=== PATIENT | female | born 1965 | race Caucasian/White ===

== ENCOUNTER 2019-02-16 08:13 | Inpatient (IN) | payer BC, SELFPAY ==
[2019-02-07 11:42] VITALS: BMI 32.1
[2019-02-16] VITALS (22 sets, daily range): BP systolic 92–141; BP diastolic 50–85; PULSE 86–120; RESP 10–18; TEMP 36.1–36.4; O2SAT 94–97; BMI 31.7
--- NOTE | 2019-02-16 | DI.RAD.S_ITS ---
PROCEDURE: XR LUMBAR SPINE 2-3V INDICATIONS: L5-S1 LAMI W/ INSTRUMENTATION FINDINGS: 3 limited intraoperative fluoroscopically stored images of the lower lumbar spine were obtained for intraoperative hardware localization purposes. These images are not meant for diagnostic purposes. Intraoperative findings related to a lower lumbar fusion procedure are present. IMPRESSION: Intraoperative images obtained during the patient's lower lumbar fusion procedure. Dictated by: Carlos Rivero M.D. on 02/16/2019 at 12:21 Approved by: Carlos Rivero M.D. on 02/16/2019 at 12:22
[2019-02-16] MEDS: LACTATED RINGERS 1,000 ML 42 ML IV ×2 (08:45→11:19)
--- NOTE | 2019-02-16 09:28 | PM.PREOP ---
Pre-operative Note Interval Note History & Physical reviewed/Exam performed by Physician: Yes Changes to H&P: No
--- NOTE | 2019-02-16 09:34 | P.OP_ITS ---
Operative Date/Time/Diagnoses Date of procedure: 02/16/19 Time of procedure: 13:16 Pre-op diagnosis: Lumbar disc herniation with radiculopathy Lumbar stenosis Post-op diagnosis: same Procedure & Clinicians Procedure: L5-S1 TLIF (posterior/posterior interbody fusion) with cage L5-S1 screws Iliac crest bone graft aspirate L5-S1 laminectomy Use of microscope Placement of epidural catheter Same procedure as scheduled: Yes Indications: [age] year old female with intractable pain from radiculopathy from stenosis. They had failed conservative management and requested operative intervention. Risks and benefits of surgery were discussed and appropriate consents were obtained. Surgeon: Clement Byrd [employer] Engineer: Carol Mackey Anesthesia Type: General Operative Notes Findings: None Closure Type: primary Specimen(s): none sent Prosthetic devices, grafts, tissues, transplants, or devices: NuVasive MAS Reline screws Globus Rise cage Applied: catheter Estimated Blood Loss (mL): 20 Procedure in detail: The patient was brought to the operating room and intubated on the table. A time-out was performed. They were then rolled over to the well- padded Mejia table in the prone position. Preoperative antibiotics were given. The back was prepped and draped in the standard sterile fashion. Using fluoroscopy, a 4 cm longitudinal incision was made to the well-marked right of the midline. We used Bovie to come down to and split the lumbodorsal fascia. Using fluoroscopy and monitoring, we then percutaneously placed Jamshidi needles down the pedicles of L5 and S1 on the right side. This was her collapsed disc above the level of her transitional S1-S2 level. She had very hard bone and we bent the needle going in at 1 level. These were changed out to guidewires and then we tapped and then placed the NuVasive MAS Reline screw shanks. We then opened up the retractors and used Bovie to clear up the posterolateral gutter as well as medially along the lamina to the spinous processes. A bur was used to decorticate the transverse processes. We brought in the microscope. Using a combination of bur and Kerrison rongeurs, a laminectomy was performed from the right side. We cleared over past the midline and carefully depressed the dura until we were able to decompress the opposite side. We cleared out the neural foramen, this required a complete facetectomy. She had massive osteophytes coming off the facet and pressing down onto the disc, crushing the root, much tighter than was on her MRI. This completed the laminectomy at L5-S1. This was separate and distinct from a TLIF approach as this was an extensive decompression requiring almost 45 minutes just to remove the osteophytes and free up the root. We then began the TLIF prep. We carefully cleaned up the remainder of the fo ramen until we could easily retract the exiting root as well as clearing medially below the dura and expose the disc space. The disc was prepped with bipolar and then an annulotomy was performed. We performed a diskectomy using a combination of paddles, nori, pituitaries, and curettes. We distracted the disc using a paddle and locked the retractor in an open position. We then filled the disc space with Osteocel bone graft. We then placed the globus Rise cage under fluoroscopy and then filled this in with more bone graft. The distraction on the retractor was released to compress down. This completed the posterior interbody fusion portion of the TLIF at L5-S1. We then placed the screw heads, bart, and locked down the set screws. The wound was copiously irrigated. A small stab incision was made over the PSIS. We used a Jamshidi needle to aspirate several mL of bone marrow from the pelvis. This was mixed with the remaining Osteocel and combined with all of the locally harvested bone graft and placed in the posterolateral gutter for the posterior fusion of the TLIF at L5- S1. An epidural catheter was then placed in the spinal canal by carefully depressing the dura and advancing it 6 cm cephalad under the remaining lamina without resistance. The muscle fascia was closed. The catheter was then injected with a solution containing 4 mL of 0.5% Marcaine, 1 mg Stadol, 4 mg Duramorph, and 100 mcg of fentanyl. This was injected without resistance and the catheter was pulled. We then went to the opposite side. Again using fluoroscopy, a 3 cm incision was made and Bovie was used to come down to split the fascia. Using neural monitoring and fluoroscopy, Jamshidi needles were advanced down the pedicles of L5 and S1 on the left side. These were switched over guidewires, tapped, and screws placed. We then placed a bart and locked the set screws on this side. The wound was irrigated. The fascia was closed. Vancomycin powder was placed in the wounds. The superficial and skin were closed. A sterile dressing was placed. The patient was then rolled over extubated and brought to recovery room without complications. Complications: none Post-operative Condition: stable Disposition: PACU Plan for aftercare: Inpatient. Up with therapy.
[2019-02-16] MEDS: CEFAZOLIN 2 GM/100 ML FROZ.PIGGY IV ×2 (10:23→18:03)
--- NOTE | 2019-02-16 11:03 | SUR.OPER ---
Prone on spine table, head in foam head support, padded chest and pelvic supports, gel pad at knees, lower legs supported by pillows; nipples, genitalia and toes free of pressure, arms secured on foam padded arm boards at <90 degrees abduction. Tape over blanket at thigh secured to table.
[2019-02-16] MEDS: VANCOMYCIN 1,000 MG VIAL 1000 MG TOP (11:17)
[2019-02-16] MEDS: THROMBIN (RECOMBINANT) 5,000 UNIT VIAL 5000 UNIT TOP (11:19)
[2019-02-16] MEDS: SODIUM CHLORIDE 0.9% 1,000 ML, GENTAMICIN 80 MG IRR (11:20)
[2019-02-16] MEDS: BUPIVACAINE 0.5% (PF) 4 ML, MORPHINE-PF 4 MG, BUTORPHANOL 1 MG, fentaNYL 100 MCG INJ (11:24)
--- NOTE | 2019-02-16 13:59 | SUR.PHASEI ---
Report given to Shaquille Adler RN
[2019-02-16] MEDS: fentaNYL 100 MCG/2 ML INJ IV ×2 (14:01→14:39)
[2019-02-16] MEDS: hydrOXYzine 50 MG/ML INJ 25 MG IM (14:06)
[2019-02-16] MEDS: LORazepam 2 MG/ML INJ 0.5 MG IV (14:56)
--- NOTE | 2019-02-16 15:07 | SUR.PHASEI ---
pt is easily arousable but wants pain medication even when she dozes off. Have talked to pt about her pain and deep breathing and reposistioning. Pt states she is tired. Her dressing is dry and intact. Dr Manzanares aware of pt's pain. Pt's vital signs are stable at present. she is slightly tachycardic but she came into the hospital at 89.
[2019-02-16] MEDS: LACTATED RINGERS 1,000 ML 125 ML IV (16:04)
--- NOTE | 2019-02-16 18:19 | PC.NURSE ---
Addendum entered by yKra Guerrero R.N. 02/16/19 18:23: HR between 100 - 107 after initiating fluids, patient taking PO. Normotensive. Original Note: [facility] admit note: Received patient at 1545, sleepy but arousable on O2 at 2L via NC, O2 sat 98%. HR on arrival, 115. No c/O pain or discomfort. CMS to BLE intact. Dressing 4 x 4 gauze to mid lower back, secured with Tegaderm, CDI. Oriented to room, environment, and plan of care. Jose M () at bedside providing supportive care. Call light within reach.
[2019-02-16] MEDS: ATORVASTATIN 10 MG TABLET PO (20:12)
[2019-02-16] MEDS: GABAPENTIN 300 MG CAPSULE PO (20:12)
[2019-02-16] MEDS: DOCUSATE 100 MG CAPSULE PO (20:12)
[2019-02-16] MEDS: SENNOSIDES 8.6 MG TABLET 17.2 MG PO (20:12)
[2019-02-16] MEDS: OXYCODONE IR 5 MG TABLET 10 MG PO (21:32)
[2019-02-17] VITALS (7 sets, daily range): BP systolic 99–120; BP diastolic 52–72; PULSE 90–108; RESP 16–24; TEMP 36.3–37.6; O2SAT 94–98
[2019-02-17] MEDS: OXYCODONE IR 5 MG TABLET PO (00:27)
[2019-02-17] MEDS: diphenhydrAMINE 25 MG TABLET PO (00:28)
[2019-02-17] MEDS: LACTATED RINGERS 1,000 ML 125 ML IV (00:31)
[2019-02-17] MEDS: CEFAZOLIN 2 GM/100 ML FROZ.PIGGY IV (01:25)
[2019-02-17] MEDS: hydrOXYzine pamoate 25 MG CAPSULE PO ×5 (01:54→23:32)
[2019-02-17] MEDS: OXYCODONE IR 5 MG TABLET 10 MG PO ×7 (03:33→23:32)
[2019-02-17 05:34] LABS: Hematocrit 38.5 % (36-46); Hemoglobin 12.8 g/dL (12.0-16.0)
[2019-02-17] MEDS: PANTOPRAZOLE 20 MG TABLET PO (06:08)
--- NOTE | 2019-02-17 07:53 | PM.PNPO.1 ---
Subjective Subjective Date Patient Seen: 02/17/19 Time Patient Seen: 07:53 Interval history: Pain is about a 7. Pain only goes in the legs when she is laying too long on her side and then only along the iliotibial band to the knee. Does not feel like her sciatic pain. Exam Vital Signs (past 8 hours): - 02/17/19 00:05 02/17/19 03:26 02/17/19 07:00 Temperature 97.4 F L 99.1 F 99.6 F Pulse Rate 108 H 102 H 98 H Respiratory Rate 16 16 16 Blood Pressure 101/52 L 120/61 99/52 L Pulse Oximetry 96 94 97 Oxygen Delivery Method Room Air Oxygen Flow Rate 0 Const Orientation: alert and oriented x3 Back/Spine/Pelvis Other: Mild quarter-size drainage on dressing. 5/5 motor both lower extremities. Objective Labs Result Diagrams: 02/17/19 05:15 Labs: Laboratory Results - last 24 hr 02/17/19 05:15 Hgb 12.8 Hct 38.5 Assessment & Plan Post-op Postoperative Procedures: Procedures Operation Date: 02/16/19 10:15 Actual Procedures Side Surgeon p L5S1 laminectomy & instrumented fusion w/ bone graft Clement Byrd MD She is doing well. Mobilize today with physical therapy. Anticipate discharge home either tomorrow or possibly Wednesday.
[2019-02-17] MEDS: DOCUSATE 100 MG CAPSULE PO ×2 (08:43→22:55)
[2019-02-17] MEDS: buPROPion XL 150 MG TAB 300 MG PO (08:44)
[2019-02-17] MEDS: ACETAMINOPHEN 325 MG TABLET 975 MG PO ×2 (08:44→23:32)
[2019-02-17] MEDS: MELOXICAM 7.5 MG TABLET 15 MG PO (08:44)
[2019-02-17] MEDS: DULOXETINE 30 MG CAPSULE 90 MG PO (08:44)
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
--- NOTE | 2019-02-17 15:46 | PC.NURSE ---
Day Shift- Spoke with Dr. Byrd at 0750, dressing has small amount of drainage noted. At 0840, pt had 75% of drainage shadowing. At 0940 , pt ambulating OOB with PT, lower back dressing saturated with leaking onto bedding. Spoke with JOSEPH Callahan at 0940 regarding need for dressing change, order rec'd. Lower back dressing removed, 2 parallel incisions well approximated with sutures intact. right incision no active leaking noted, left incision had active leaking during NS gauze cleansing. 4X4 gauze applied and coversite applied. 0953, JOSEPH Callahan updated with dressing change. Spoke with JOSEPH Muller around 1100, if dressing has drainage again, change to pressure dressing and JOSEPH Muller will check in on pt this afternoon after surgery. At 1455, dressing nearly saturated,dressing removed, area cleansed with NS, 2 incisions well approximated with sutures intact, no S/S of infection. 4X4 gauze and medipore pressure dressing applied, pt tolerated well. Evening RN Rosendo aware to notify JOSEPH Muller to update. Pt also had a compromised PIV to right hand, removed, new IV placed by another RN to right wrist/FA, pt stated pain with movement OOB and requested to have removed with the potential of another IV placement. PIV removed. ZENA Robbins also aware if no further IV interventions needed, pt request to leave IV out and to clarify with PA. Pt has good OOB movement and plans to discharge home tomorrow. Urinary catheter removed at 1110 without difficulty, pt voided post removal for 600mls without issue.
--- NOTE | 2019-02-17 16:07 | PT.IPTN ---
Current Diagnoses Intervertebral disc disorders with radiculopathy, lumbar region (02/16/19) Other biomechanical lesions of lumbar region (02/16/19) Surgery Performed Operation Date: 02/16/19 10:15 Actual Procedures p L5S1 laminectomy & instrumented fusion w/ bone graft - Clement Byrd MD Physical Therapy Treatment Note M2 PT-IP Current Condition Start: 02/17/19 13:00 Freq: NEEDED Status: Active Protocol: Document 02/17/19 09:15 AB (Rec: 02/17/19 13:14 AB [id number]) Physical Therapy Current Condition Current Condition Evaluation Date 02/17/19 Treatment Diagnosis s/p L5-S1 TLIF; difficulty in walking Onset Date 02/16/19 Precautions Lumbar Precautions Log Roll,No Twisting,Limit Bending,Lifting Restriction of 10 lbs,Gait Belt above Incisional Area M3 PT-IP Subjective Start: 02/17/19 13:00 Freq: NEEDED Status: Active Protocol: Document 02/17/19 15:34 LJ (Rec: 02/17/19 16:07 LJ [id number]) Subjective Physical Therapy Visit Type Type Treatment Note Visit Start Time 15:34 Visit Stop Time 15:57 Total Visit Minutes 27 Number of REPTILE FARMER Visits 1 Physical Therapy Visit Comments Patient Comments agreeable to do PT Therapy Pain Assessment Pain When Pain Assessed During Mobility Pain Present Pain Present Pain Reported M4 PT-IP Mobility and Gait Start: 02/17/19 13:00 Freq: NEEDED Status: Active Protocol: Document 02/17/19 15:34 LJ (Rec: 02/17/19 16:07 LJ [id number]) PT-Bed Mobility Assessment Rolling Type of Rolling Log Rolling Level of Assist Standby Assistance Supine to Sit Supine to Sit Standby Assistance,1 Person Assistance PT-Transfer Assessment Sit to and From Stand Sit to and from Stand Contact Guard Assistance,1 Person Assistance Equipment Transfer Assistive Device Gait Belt,Front Wheeled Walker Orthotic/Prosthetic Devices or Brace: No Transfers Transfer Destination Bed Transfer Ability Level of Assist Contact Guard Assistance, Minimal Assistance,1 Person Assistance,Use of Upper Extremities Comments Mobility Comments Pt completed log roll, supine< >sit, and sit<>stand SBA-CGA. Pt able to stand on first attempt and stabilize holding onto FWW. Gait Assessment Gait Gait Assistance Required: Contact Guard Assist,Minimum Assistance Distance (Feet) 30 Able to Maintain Weight Bearing Status Yes During Gait Assistive Devices Assistive Device Gait Belt,Front Wheeled Walker Orthotic/Prosthetic Devices or Brace: No Gait Deviations General Gait Pattern Decreased Stride Length, Decreased Feet Clearance Factors Limiting Gait Function Factors Limiting Gait Function Decreased Activity Tolerance, Decreased Strength,Limited Range of Motion,Pain,Poor Balance Comments Gait Comments Pt using FWW for support during ambulation. Slow and steady gait with decreased foot clearance and stride CGA. PT-Balance Assessment Sitting Balance and Reactions Static Sitting Balance Ability Good Dynamic Sitting Balance Ability Good M5 PT-IP Objective Assessments Start: 02/17/19 13:00 Freq: NEEDED Status: Active Protocol: Document 02/17/19 09:15 AB (Rec: 02/17/19 13:14 AB [id number]) Orientation Orientation/Cognition Level of Alertness Alert Orientation Name,Place,Situation Language Function Ability No Deficits Noted Safety Awareness Decreased Safety Awareness Memory Description No Deficits Noted Gross Range of Motion Lower Extremity ROM Assessment Within Functional Limits Strength Lower Extremity Strength Assessment Right Impaired Hip 4-/5 Knee 3+/5 Coordination Assessment Gross Coordination Gross Coordination WNL Sensation Assessment Sensation Gross Sensation WNL Muscle Tone Muscle Tone WNL Yes M6 PT-IP Treatment Start: 02/17/19 13:00 Freq: NEEDED Status: Active Protocol: Document 02/17/19 15:34 LJ (Rec: 02/17/19 16:07 LJ [id number]) Physical Therapy Treatment Education Education Provided Precautions,Safety M7 PT-IP Assessment and Plan Start: 02/17/19 13:00 Freq: NEEDED Status: Active Protocol: Document 02/17/19 15:34 LJ (Rec: 02/17/19 16:07 LJ [id number]) PT Summary Assessment and Plan Potential Rehabilitation Potential Good Status of Condition at Evaluation Stable Summary Impairments Pain,ROM,Strength,Balance, Coordination,Bed Mobility, Transfers,Gait,Activity Tolerance Assessment Summary pt requiring SBA-CGA with mobility and gait. Will need to attempt 1 step-like landing and stairs to get into house before DC. Next treatmeent advance gait distance and trial step. Daughter present during treatment. ADvised pillow placements for more comfortable sleep position on side. Goals Bed Mobility Goal Independent Transfer Goal Standby Assistance,Front Wheeled Walker Gait Goal Standby Assistance,Front Wheel Walker Gait Distance 200 Other Goals up/down 14 steps R rail SBA Days to Meet Goals 3 Frequency of Treatment Frequency Of Treatment Twice a Day Treatment Plan Physical Therapy Treatment Plan Bed Mobility Training,Transfer Training,Gait Training, Therapeutic Exercise,Balance Retraining,Post Op Education, Discharge Planning,Hot or Cold Pack,Neuromuscular Re-ed, Coordination Retraining,Manual Therapy Recommendations To Nursing Amount of Assist Needed 1 Person Assist Discharge Recommendations PT Discharge Recommendations Home with Assistance
[2019-02-17] MEDS: TIZANIDINE 4 MG TABLET PO (16:42)
--- NOTE | 2019-02-17 16:49 | PC.NURSE ---
PATIENT HAS NO IV AT THIS TIME,IV WAS REMOVED BY DAY SHIFT RN.ORAL PAIN MEDICATIONS GIVEN,PATIENTS PAIN NOT COVERED, ATTEMPT MULTI.TIMES FOR PIV, PATIENT STATES ORAL PAIN MEDS STARTING TO TAKE EFFECT.REFUSES ADDITIONAL IV ATTEMPTS
[2019-02-17] MEDS: ATORVASTATIN 10 MG TABLET PO (22:55)
[2019-02-17] MEDS: GABAPENTIN 300 MG CAPSULE PO (22:55)
[2019-02-17] MEDS: SENNOSIDES 8.6 MG TABLET 17.2 MG PO (22:56)
[2019-02-18] MEDS: OXYCODONE IR 5 MG TABLET PO (01:34)
[2019-02-18] MEDS: TIZANIDINE 4 MG TABLET PO ×2 (01:34→23:30)
[2019-02-18 04:15] VITALS: BP 107/59; PULSE 85; RESP 20; TEMP 36.1; O2SAT 100
[2019-02-18] MEDS: OXYCODONE IR 5 MG TABLET 10 MG PO ×2 (04:18→07:47)
[2019-02-18] MEDS: hydrOXYzine pamoate 25 MG CAPSULE PO ×3 (04:18→13:57)
--- NOTE | 2019-02-18 06:56 | PC.NURSE ---
Intravenous line attempted twice on NOC shift and both attempts were unsuccessful.
[2019-02-18] MEDS: ACETAMINOPHEN 325 MG TABLET 975 MG PO ×3 (07:46→16:54)
[2019-02-18] MEDS: DULOXETINE 30 MG CAPSULE 90 MG PO (07:46)
[2019-02-18] MEDS: MELOXICAM 7.5 MG TABLET 15 MG PO (07:47)
[2019-02-18] MEDS: DOCUSATE 100 MG CAPSULE PO ×2 (07:47→20:13)
[2019-02-18 08:00] VITALS: BP 108/66; PULSE 84; RESP 18; TEMP 36.3; O2SAT 97
--- NOTE | 2019-02-18 08:58 | PT.IPTN ---
Current Diagnoses Intervertebral disc disorders with radiculopathy, lumbar region (02/16/19) Other biomechanical lesions of lumbar region (02/16/19) Surgery Performed Operation Date: 02/16/19 10:15 Actual Procedures p L5S1 laminectomy & instrumented fusion w/ bone graft - Clement Byrd MD Physical Therapy Treatment Note M2 PT-IP Current Condition Start: 02/17/19 13:00 Freq: NEEDED Status: Active Protocol: Document 02/17/19 09:15 AB (Rec: 02/17/19 13:14 AB [id number]) Physical Therapy Current Condition Current Condition Evaluation Date 02/17/19 Treatment Diagnosis s/p L5-S1 TLIF; difficulty in walking Onset Date 02/16/19 Precautions Lumbar Precautions Log Roll,No Twisting,Limit Bending,Lifting Restriction of 10 lbs,Gait Belt above Incisional Area M3 PT-IP Subjective Start: 02/17/19 13:00 Freq: NEEDED Status: Active Protocol: Document 02/18/19 08:58 CLB (Rec: 02/18/19 11:16 CLB [id number]) Subjective Physical Therapy Visit Type Type Treatment Note Visit Start Time 08:58 Visit Stop Time 09:11 Total Visit Minutes 13 Notes Pts daughter present during tx . Number of ELECTRIC WHEELCHAIR REPAIRER Visits 2 Physical Therapy Visit Comments Patient Comments agreeable to do PT Therapy Pain Assessment Pain When Pain Assessed At Rest Pain Present Pain Present Pain Reported Location Lower Back Intensity 6 Scale Used Numeric (1 - 10) Pain Management Techniques Apply Cold,Re-positioning, Timing of Activity with Medications M4 PT-IP Mobility and Gait Start: 02/17/19 13:00 Freq: NEEDED Status: Active Protocol: Document 02/18/19 08:58 CLB (Rec: 02/18/19 11:16 CLB [id number]) PT-Bed Mobility Assessment Rolling Type of Rolling Log Rolling Level of Assist Standby Assistance Supine to Sit Supine to Sit Standby Assistance,1 Person Assistance Scooting Scooting to Edge of Bed Standby Assistance PT-Transfer Assessment Sit to and From Stand Sit to and from Stand Standby Assistance,1 Person Assistance,Use of Upper Extremities Equipment Transfer Assistive Device Gait Belt,Front Wheeled Walker Orthotic/Prosthetic Devices or Brace: No Transfers Transfer Destination Bed Transfer Ability Level of Assist Standby Assistance,1 Person Assistance,Use of Upper Extremities Comments Mobility Comments Pt is SBA for log roll, sup- sit and sit<>stand. Pt has good safety awareness during transfers. Left pt sitting on EOB with call light and all other needs within reach, CELL ATTENDANT HELPER informed. Daughter present. Gait Assessment Gait Gait Assistance Required: Standby Assistance,Contact Guard Assist Distance (Feet) 100 Able to Maintain Weight Bearing Status Yes During Gait Assistive Devices Assistive Device Gait Belt,Front Wheeled Walker Orthotic/Prosthetic Devices or Brace: No Gait Deviations General Gait Pattern Decreased Stride Length, Decreased Feet Clearance Factors Limiting Gait Function Factors Limiting Gait Function Decreased Activity Tolerance, Decreased Strength,Limited Range of Motion,Pain,Poor Balance Comments Gait Comments Pt increased gait to ~100ft with FWW/SBA/CGA. Pt steady with gait with good safety awareness. M5 PT-IP Objective Assessments Start: 02/17/19 13:00 Freq: NEEDED Status: Active Protocol: Document 02/17/19 09:15 AB (Rec: 02/17/19 13:14 AB [id number]) Orientation Orientation/Cognition Level of Alertness Alert Orientation Name,Place,Situation Language Function Ability No Deficits Noted Safety Awareness Decreased Safety Awareness Memory Description No Deficits Noted Gross Range of Motion Lower Extremity ROM Assessment Within Functional Limits Strength Lower Extremity Strength Assessment Right Impaired Hip 4-/5 Knee 3+/5 Coordination Assessment Gross Coordination Gross Coordination WNL Sensation Assessment Sensation Gross Sensation WNL Muscle Tone Muscle Tone WNL Yes M6 PT-IP Treatment Start: 02/17/19 13:00 Freq: NEEDED Status: Active Protocol: Document 02/17/19 15:34 LJ (Rec: 02/17/19 16:07 LJ [id number]) Physical Therapy Treatment Education Education Provided Precautions,Safety M7 PT-IP Assessment and Plan Start: 02/17/19 13:00 Freq: NEEDED Status: Active Protocol: Document 02/18/19 08:58 CLB (Rec: 02/18/19 11:16 CLB [id number]) PT Summary Assessment and Plan Potential Rehabilitation Potential Good Status of Condition at Evaluation Stable Summary Impairments Pain,ROM,Strength,Balance, Coordination,Bed Mobility, Transfers,Gait,Activity Tolerance Assessment Summary Pt requires SBA for all bed mobility, sit<>stand and SBA/ CGA for gait. Pt able to increase gait to ~100ft but did not feel she could attempt stairs after gait due to pain . Up/down one step with FWW before d/c home. Goals Bed Mobility Goal Independent Transfer Goal Standby Assistance,Front Wheeled Walker Gait Goal Standby Assistance,Front Wheel Walker Other Goals up/down 14 steps R rail SBA Days to Meet Goals 3 Frequency of Treatment Frequency Of Treatment Twice a Day Treatment Plan Physical Therapy Treatment Plan Bed Mobility Training,Transfer Training,Gait Training, Therapeutic Exercise,Balance Retraining,Post Op Education, Discharge Planning,Hot or Cold Pack,Neuromuscular Re-ed, Coordination Retraining,Manual Therapy Other Recommendations and Next Treatment stairs, gait Focus Recommendations To Nursing Amount of Assist Needed 1 Person Assist Discharge Recommendations PT Discharge Recommendations Home with Assistance
--- NOTE | 2019-02-18 09:25 | PM.PN.1 ---
Subjective Subjective Date Patient Seen: 02/18/19 Time Patient Seen: 09:26 Interval history: Patient is POD #2 L4-[address] Byrd. Pain severe overnight, not controlled with Oxycodone PO. Several attempts were made to start an IV which were unsuccessful. Patient states she was unable to sleep for >10 min at a time due to LBP and pain into the legs. No nausea or vomiting, chest pain, shortness of breath. Exam Vital Signs (past 8 hours): - 02/18/19 04:15 02/18/19 08:00 Temperature 96.9 F L 97.3 F L Pulse Rate 85 84 Respiratory Rate 20 18 Blood Pressure 107/59 L 108/66 Pulse Oximetry 100 97 Oxygen Delivery Method Room Air Oxygen Flow Rate 0 Narrative Exam Narrative: 53 year old female sitting in bed. Alert and oriented in moderate discomfort. Dressing on the lumbar spine with moderated shadow drainage. 5/5 in BLE. SILT. Calves soft, compressible. Palpable pedal pulses. Objective Labs Result Diagrams: 02/17/19 05:15 Assessment & Plan Assessment & Plan narrative: Patient will mobilize today with PT. Dilaudid 2mg PO Decadron added for improved pain control. Possible discharge later today if improved pain control otherwise discharge to home tomorrow.
--- NOTE | 2019-02-18 10:00 | OT.IP.TRT ---
Current Diagnoses Intervertebral disc disorders with radiculopathy, lumbar region (02/16/19) Other biomechanical lesions of lumbar region (02/16/19) Surgery Performed Operation Date: 02/16/19 10:15 Actual Procedures p L5S1 laminectomy & instrumented fusion w/ bone graft - Clement Byrd MD Occupational Therapy Treatment Note M2 OT-IP Current Condition Start: 02/17/19 16:45 Freq: Status: Active Protocol: Document 02/17/19 16:46 [facility] (Rec: 02/17/19 17:10 [facility] [id number]) Occupational Therapy Current Condition Current Condition Evaluation Date 02/17/19 Treatment Diagnosis S/p L5-S1 TLIF Diagnosis Onset Date 02/16/19 Post Operative Precautions Lumbar Precautions Log Roll,No Twisting,Limit Bending,Lifting Restriction of 10 lbs,Gait Belt above Incisional Area Weight Bearing Status Weight Bearing Status Weight Bear as Tolerated M3 OT- IP Subjective and Pain Start: 02/17/19 16:45 Freq: Status: Active Protocol: Document 02/18/19 12:14 [facility] (Rec: 02/18/19 12:29 [facility] [id number]) OT- Subjective Occupational Therapy Visit Type Type Treatment Note Visit Start Time 10:00 Visit Stop Time 10:26 Total Visit Minutes 26 Occupational Therapy Visit Comments Patient Comments Pt states having pain and tired from not sleeping well. Patient/Caregiver Goals To go home when pain more manageable. OT Pain Assessment Pain When Pain Assessed At Rest Pain Present Pain Present Pain Reported Location Left Thigh Intensity 9 M4 OT- IP ADL's Start: 02/17/19 16:45 Freq: Status: Active Protocol: Document 02/18/19 12:14 [facility] (Rec: 02/18/19 12:29 [facility] [id number]) OT ADL-Grooming General Evaluation Grooming Ability Independent OT ADL-Oral Care General Eval Oral Care Ability Independent Comments Oral Care Comments Pt able to incorporate back precautions safely during grooming needs. OT ADL-Toileting General Evaluation Toileting Ability Independent,Standby Assistance Comments OT Toileting Comments Pt independent for toileting needing and able to stand for hygiene needs. At this time BSC mainly needed if having a far distance to use if pt going to sleep on the main level in her recliner. OT ADL-Bathing Comments OT Bathing Comments Pt not wanting to shower at this time. M5 OT- IP IADL's Start: 02/17/19 16:45 Freq: Status: Active Protocol: Document 02/17/19 16:46 [facility] (Rec: 02/17/19 17:10 [facility] [id number]) OT-Instrumental Activities of Daily Living Home Safety Awareness Awareness of Need for Assistance at Home Good Awareness Ability to Problem Solve Emergency Able to Problem Solve Situations Medication Management Medication Management No Deficits Identified Money Management Money Management No Deficits Identified Meal Preparation Meal Preparation Comments Family to assist. Sprayer Automatic Spray Machine Sprayer Automatic Spray Machine Comments Family to assist. M6 OT- IP Functional Cognition Start: 02/17/19 16:45 Freq: Status: Active Protocol: Document 02/18/19 12:14 [facility] (Rec: 02/18/19 12:29 [facility] [id number]) Cognitive Factors Limiting Selfcare Function Cognitive Ability Level of Alertness Alert Patient Orientation Name,Age,Birthday,Month,Date, Year,Day of Week,Place, Situation Attention Span Ability Capable of Focused Attention, Capable of Sustained Attention Ability to Follow Commands Able to Follow Multi-Step Commands Memory Description No Deficits Noted Safety Awareness Underestimates Need for Assistance Problem Solving Ability No deficits Noted Cognitive Comments Cognitive Assessment Comments Pt insisting that she is able to flush the toilet, therefore turned around with the FWW and lifted her leg up to use her foot to flush the toilet. Educated to pt best to use her hand to flush for safety instead . M7 OT- IP Mobility and Balance Start: 02/17/19 16:45 Freq: Status: Active Protocol: Document 02/18/19 12:14 [facility] (Rec: 02/18/19 12:29 [facility] [id number]) OT- Bed Mobility Assessment Rolling Type of Rolling Roll to Right Level of Assistance Standby Assistance Supine to Sit Supine to Sit Assist Standby Assistance,1 Person Assistance Sit to Supine Sit to Supine Assist Standby Assistance,1 Person Assistance Scooting Scooting to Edge of Bed Standby Assistance,1 Person Assistance OT-Transfer Assessment Sit to and From Stand Sit to and from Stand Standby Assistance Transfers Transfer Ability Standby Assistance Technique Transfer Destination Bed,Toilet Transfer Technique Stand Step Pivot Devices Transfer Assistive Devices Gait Belt,Front Wheeled Walker OT- Balance Assessment Sitting Balance and Reactions Static Sitting Balance Ability Normal Dynamic Sitting Balance Ability Normal Standing Balance and Reactions Static Standing Balance Ability Normal Dynamic Standing Balance Ability Fair M8 OT- IP Objective Assessments Start: 02/17/19 16:45 Freq: Status: Active Protocol: Document 02/17/19 16:46 [facility] (Rec: 02/17/19 17:10 [facility] [id number]) OT Gross Range of Motion Upper Extremity Range of Motion Assessment Within Functional Limits OT Strength Upper Extremity Strength Assessment Within Functional Limits M9 OT- IP Assessment and Plan Start: 02/17/19 16:45 Freq: Status: Active Protocol: Document 02/18/19 12:14 [facility] (Rec: 02/18/19 12:29 [facility] [id number]) OT Summary Assessment and Plan Potential Rehabilitation Potential Excellent Analytic Complexity at Evaluation Low Summary OT Impairments Pain,Functional Mobility, Bathing,Shower Transfers Progress Towards Goals Progressing Toward Goals Assessment Summary Pt doing well for OT needs, mainly cues to safety awareness as pt trying to flush the toilet with her foot versus use of hand for better auto body straightener and safety. Pt has good understanding for all OT needs and will have family to assist her at home. Goals Grooming Goal Independent Dressing Goal Standby Assistance Toileting Goal Independent Bathing Goal Standby Assistance Toilet Transfer Goal Independent Shower Transfer Goal Standby Assistance Patient/Caregiver Education Goal Caregiver Independent Assisting Patient Days to Meet Goals 1 Frequency of Treatment Frequency Of Treatment Once a Day Treatment Plan OT Treatment Plan ADL Training,Functional Mobility,Patient/Family Education,Discharge Planning Discharge Recommendations OT Discharge Recommendations Home with Assistance Home Equipment Needs BSCWINSTON dressing equipment issued
[2019-02-18] MEDS: HYDROMORPHONE 2 MG TABLET PO ×5 (10:52→23:30)
[2019-02-18] MEDS: buPROPion XL 150 MG TAB 300 MG PO (10:52)
[2019-02-18] MEDS: dexAMETHasone 4 MG TABLET 10 MG PO (10:54)
[2019-02-18 12:00] VITALS: BP 123/71; PULSE 90; RESP 18; TEMP 36.6; O2SAT 99
--- NOTE | 2019-02-18 12:26 | CM.IDA ---
Initial DCP Assessment Note: Pt is a 53 yo female, resident of [place]. Pt is now POD#2 from spinal surgery w/Dr Byrd. PCP: Yaneth Wolff Payer: Celena/ KELLY Reviewed chart, spoke w/Ortho PA this morning and she indicated pt can DC home today if pain is adequately controlled and therapy team has cleared her for this plan. Therapy team recommending home w/assistance today, pt has planned to DC home w/spouse and family to assist. Stair training (one stair per notes) this afternoon. Attempted to meet w/pt and she said she was in pain, confirms plan for return home, pt had just finished w/OT. This COMPENSATION AND BENEFITS ADMINISTRATOR has not identified any barriers this morning to pt's DC home, likely later today. Will remain available in case this changes today/tomorrow. ANUP Cantrell
[2019-02-18] MEDS: dexAMETHasone 4 MG TABLET PO ×2 (13:57→21:33)
--- NOTE | 2019-02-18 14:17 | PC.NURSE ---
Patient assisted to shower. INCISION RINSE WITH NORMAL SALINE AND THEN Dressing on back changed to coversite, CDI AT THIS TIME. Patient still rating her pain up to a 6 or 7 at this time, she feels dilaudid may be starting to help more than the oxycodone. Pain has decreased in her left thigh but remains significant in her back. Patient not feeling ready for discharge today. Plan for P.T. to come back this afternoon to assess stairs. Patient resting in chair at this time with call light within reach.
[2019-02-18] MEDS: MAGNESIUM HYDROXIDE 30 ML UDC PO (15:02)
--- NOTE | 2019-02-18 15:02 | PT.IPTN ---
Current Diagnoses Intervertebral disc disorders with radiculopathy, lumbar region (02/16/19) Other biomechanical lesions of lumbar region (02/16/19) Surgery Performed Operation Date: 02/16/19 10:15 Actual Procedures p L5S1 laminectomy & instrumented fusion w/ bone graft - Clement Byrd MD Physical Therapy Treatment Note M2 PT-IP Current Condition Start: 02/17/19 13:00 Freq: NEEDED Status: Active Protocol: Document 02/17/19 09:15 AB (Rec: 02/17/19 13:14 AB [id number]) Physical Therapy Current Condition Current Condition Evaluation Date 02/17/19 Treatment Diagnosis s/p L5-S1 TLIF; difficulty in walking Onset Date 02/16/19 Precautions Lumbar Precautions Log Roll,No Twisting,Limit Bending,Lifting Restriction of 10 lbs,Gait Belt above Incisional Area M3 PT-IP Subjective Start: 02/17/19 13:00 Freq: NEEDED Status: Active Protocol: Document 02/18/19 14:21 LJ (Rec: 02/18/19 15:02 LJ [id number]) Subjective Physical Therapy Visit Type Type Treatment Note Visit Start Time 14:21 Visit Stop Time 14:45 Total Visit Minutes 24 Physical Therapy Visit Comments Patient Comments agreeable to do PT M4 PT-IP Mobility and Gait Start: 02/17/19 13:00 Freq: NEEDED Status: Active Protocol: Document 02/18/19 14:21 LJ (Rec: 02/18/19 15:02 LJ [id number]) PT-Transfer Assessment Sit to and From Stand Sit to and from Stand Standby Assistance,1 Person Assistance,Use of Upper Extremities Equipment Transfer Assistive Device Gait Belt,Front Wheeled Walker Orthotic/Prosthetic Devices or Brace: No Transfers Transfer Destination Bed Transfer Ability Level of Assist Standby Assistance,1 Person Assistance,Use of Upper Extremities Comments Mobility Comments Pt is SBA for bed mobility and transfers. Gait Assessment Gait Gait Assistance Required: Standby Assistance,Contact Guard Assist Distance (Feet) 100 Able to Maintain Weight Bearing Status Yes During Gait Assistive Devices Assistive Device Gait Belt,Front Wheeled Walker Orthotic/Prosthetic Devices or Brace: No Gait Deviations General Gait Pattern Decreased Stride Length, Decreased Feet Clearance, Narrow Based Gait Factors Limiting Gait Function Factors Limiting Gait Function Decreased Activity Tolerance, Decreased Strength,Limited Range of Motion,Pain,Poor Balance Comments Gait Comments Pt ambulated to stairs and back to room ~120 with CGA-SBA . Cues for widening gait to increase safety while walking. Stair Climbing Assessment Evaluation Level of Assist On Stairs Standby Assistance Devices Stair Climbing Assistive Devices Front Wheel Walker Technique/Endurance Stair Climbing Direction Ascend and Descend Stair Climbing Technique Step to Step Number of Steps Climbed 1 Stair Climbing Set # Repetitions (reps) 1 M5 PT-IP Objective Assessments Start: 02/17/19 13:00 Freq: NEEDED Status: Active Protocol: Document 02/17/19 09:15 AB (Rec: 02/17/19 13:14 AB [id number]) Orientation Orientation/Cognition Level of Alertness Alert Orientation Name,Place,Situation Language Function Ability No Deficits Noted Safety Awareness Decreased Safety Awareness Memory Description No Deficits Noted Gross Range of Motion Lower Extremity ROM Assessment Within Functional Limits Strength Lower Extremity Strength Assessment Right Impaired Hip 4-/5 Knee 3+/5 Coordination Assessment Gross Coordination Gross Coordination WNL Sensation Assessment Sensation Gross Sensation WNL Muscle Tone Muscle Tone WNL Yes M6 PT-IP Treatment Start: 02/17/19 13:00 Freq: NEEDED Status: Active Protocol: Document 02/17/19 15:34 LJ (Rec: 02/17/19 16:07 LJ [id number]) Physical Therapy Treatment Education Education Provided Precautions,Safety M7 PT-IP Assessment and Plan Start: 02/17/19 13:00 Freq: NEEDED Status: Active Protocol: Document 02/18/19 14:21 LJ (Rec: 02/18/19 15:02 LJ [id number]) PT Summary Assessment and Plan Potential Rehabilitation Potential Good Status of Condition at Evaluation Stable Summary Impairments Pain,ROM,Strength,Balance, Coordination,Bed Mobility, Transfers,Gait,Activity Tolerance Assessment Summary Pt requires SBA for bed mobility and transfers. CGA for for ambulation and stepping up and down with FWW on lg platform step. Next treatment advance gait distance. Goals Bed Mobility Goal Independent Transfer Goal Standby Assistance,Front Wheeled Walker Gait Goal Standby Assistance,Front Wheel Walker Other Goals up/down 14 steps R rail SBA Frequency of Treatment Frequency Of Treatment Twice a Day Treatment Plan Physical Therapy Treatment Plan Bed Mobility Training,Transfer Training,Gait Training, Therapeutic Exercise,Balance Retraining,Post Op Education, Discharge Planning,Hot or Cold Pack,Neuromuscular Re-ed, Coordination Retraining,Manual Therapy Other Recommendations and Next Treatment gait and possibly stairs but Focus pt is able to sleep on first floor Recommendations To Nursing Amount of Assist Needed 1 Person Assist Discharge Recommendations PT Discharge Recommendations Home with Assistance
[2019-02-18 16:48] VITALS: BP 128/74; PULSE 91; RESP 19; TEMP 36.3; O2SAT 95
[2019-02-18] MEDS: GABAPENTIN 300 MG CAPSULE PO (20:13)
[2019-02-18] MEDS: ATORVASTATIN 10 MG TABLET PO (20:13)
[2019-02-18] MEDS: SENNOSIDES 8.6 MG TABLET 17.2 MG PO (20:14)
[2019-02-18 21:41] VITALS: BP 103/55; PULSE 104; RESP 20; TEMP 35.6; O2SAT 95
[2019-02-18 23:00] VITALS: BP 127/72; PULSE 96; RESP 16; TEMP 36.2; O2SAT 98
[2019-02-19] MEDS: ACETAMINOPHEN 325 MG TABLET 975 MG PO ×2 (02:25→08:40)
[2019-02-19] MEDS: HYDROMORPHONE 2 MG TABLET PO ×3 (02:26→09:13)
--- NOTE | 2019-02-19 03:51 | PC.NURSE ---
Patient stated she wanted to be awakened during the night whenever it may be possible for pain meds. Able to rest between administrations.
[2019-02-19 05:24] VITALS: BP 127/77; PULSE 90; RESP 16; TEMP 36.9; O2SAT 97
[2019-02-19] MEDS: dexAMETHasone 4 MG TABLET PO (06:06)
[2019-02-19] MEDS: hydrOXYzine pamoate 25 MG CAPSULE PO (06:06)
[2019-02-19] MEDS: PANTOPRAZOLE 20 MG TABLET PO (06:23)
--- NOTE | 2019-02-19 07:59 | PC.NURSE ---
Patient is sleeping soundly in bed at this time, recently took pain medications at 6am per nightshift and then allowed to rest. Call light within reach, will follow.
[2019-02-19 08:00] VITALS: BP 126/72; PULSE 91; RESP 16; TEMP 36.5; O2SAT 97
[2019-02-19] MEDS: buPROPion XL 150 MG TAB 300 MG PO (08:40)
[2019-02-19] MEDS: DOCUSATE 100 MG CAPSULE PO (08:41)
[2019-02-19] MEDS: DULOXETINE 30 MG CAPSULE 90 MG PO (08:41)
[2019-02-19] MEDS: MELOXICAM 7.5 MG TABLET 15 MG PO (08:41)
--- NOTE | 2019-02-19 09:12 | PT.IPTN ---
Current Diagnoses Intervertebral disc disorders with radiculopathy, lumbar region (02/16/19) Other biomechanical lesions of lumbar region (02/16/19) Surgery Performed Operation Date: 02/16/19 10:15 Actual Procedures p L5S1 laminectomy & instrumented fusion w/ bone graft - Clement Byrd MD Physical Therapy Treatment Note M2 PT-IP Current Condition Start: 02/17/19 13:00 Freq: NEEDED Status: Discharge Protocol: Document 02/17/19 09:15 AB (Rec: 02/17/19 13:14 AB [id number]) Physical Therapy Current Condition Current Condition Evaluation Date 02/17/19 Treatment Diagnosis s/p L5-S1 TLIF; difficulty in walking Onset Date 02/16/19 Precautions Lumbar Precautions Log Roll,No Twisting,Limit Bending,Lifting Restriction of 10 lbs,Gait Belt above Incisional Area M3 PT-IP Subjective Start: 02/17/19 13:00 Freq: NEEDED Status: Discharge Protocol: Document 02/19/19 09:12 [facility] (Rec: 02/19/19 12:10 [facility] [id number]) Subjective Physical Therapy Visit Type Type Treatment Note Visit Start Time 09:12 Visit Stop Time 09:31 Total Visit Minutes 19 Number of CREDIT AND COLLECTIONS ANALYST Visits 4 Physical Therapy Visit Comments Patient Comments agreeable to do PT Therapy Pain Assessment Pain When Pain Assessed During Mobility Pain Present Pain Present Pain Reported Location Lower Back Intensity 5 Scale Used Numeric (1 - 10) Pain Management Techniques Apply Cold,Re-positioning, Timing of Activity with Medications M4 PT-IP Mobility and Gait Start: 02/17/19 13:00 Freq: NEEDED Status: Discharge Protocol: Document 02/19/19 09:12 [facility] (Rec: 02/19/19 12:10 [facility] [id number]) PT-Bed Mobility Assessment Rolling Type of Rolling Log Rolling Level of Assist Standby Assistance Supine to Sit Supine to Sit Standby Assistance,1 Person Assistance Scooting Scooting to Edge of Bed Standby Assistance PT-Transfer Assessment Sit to and From Stand Sit to and from Stand Standby Assistance,1 Person Assistance,Use of Upper Extremities Equipment Transfer Assistive Device Gait Belt,Front Wheeled Walker Orthotic/Prosthetic Devices or Brace: No Transfers Transfer Destination Bed,Chair Transfer Ability Level of Assist Standby Assistance,1 Person Assistance,Use of Upper Extremities Comments Mobility Comments Pt is SBA for bed mobility and transfers. Gait Assessment Gait Gait Assistance Required: Standby Assistance Distance (Feet) 225 Able to Maintain Weight Bearing Status Yes During Gait Assistive Devices Assistive Device Gait Belt,Front Wheeled Walker Orthotic/Prosthetic Devices or Brace: No Factors Limiting Gait Function Factors Limiting Gait Function Decreased Activity Tolerance, Decreased Strength,Pain Comments Gait Comments Pt increased ambulation to ~ 225ft with steady step through gait pattern. Pt uses UE's on FWW to decrease pain in back during ambulation. Stair Climbing Assessment Evaluation Level of Assist On Stairs Standby Assistance Devices Stair Climbing Assistive Devices Left Railing,Right Railing Technique/Endurance Stair Climbing Direction Ascend and Descend Stair Climbing Technique Step Over Step Number of Steps Climbed 3 Stair Climbing Set # Repetitions (reps) 2 M5 PT-IP Objective Assessments Start: 02/17/19 13:00 Freq: NEEDED Status: Discharge Protocol: Document 02/17/19 09:15 AB (Rec: 02/17/19 13:14 AB [id number]) Orientation Orientation/Cognition Level of Alertness Alert Orientation Name,Place,Situation Language Function Ability No Deficits Noted Safety Awareness Decreased Safety Awareness Memory Description No Deficits Noted Gross Range of Motion Lower Extremity ROM Assessment Within Functional Limits Strength Lower Extremity Strength Assessment Right Impaired Hip 4-/5 Knee 3+/5 Coordination Assessment Gross Coordination Gross Coordination WNL Sensation Assessment Sensation Gross Sensation WNL Muscle Tone Muscle Tone WNL Yes M6 PT-IP Treatment Start: 02/17/19 13:00 Freq: NEEDED Status: Discharge Protocol: Document 02/17/19 15:34 LJ (Rec: 02/17/19 16:07 LJ [id number]) Physical Therapy Treatment Education Education Provided Precautions,Safety M7 PT-IP Assessment and Plan Start: 02/17/19 13:00 Freq: NEEDED Status: Discharge Protocol: Document 02/19/19 09:12 [facility] (Rec: 02/19/19 12:10 [facility] [id number]) PT Summary Assessment and Plan Potential Rehabilitation Potential Good Status of Condition at Evaluation Stable Summary Impairments Pain,ROM,Strength,Balance, Coordination,Bed Mobility, Transfers,Gait,Activity Tolerance Assessment Summary Pt requires SBA for all mobility and transfers. Pt able to increase gait distance and quality and able to climb steps SBA. Goals Bed Mobility Goal Independent Transfer Goal Standby Assistance,Front Wheeled Walker Gait Goal Standby Assistance,Front Wheel Walker Other Goals up/down 14 steps R rail SBA Frequency of Treatment Frequency Of Treatment Twice a Day Treatment Plan Physical Therapy Treatment Plan Bed Mobility Training,Transfer Training,Gait Training, Therapeutic Exercise,Balance Retraining,Post Op Education, Discharge Planning,Hot or Cold Pack,Neuromuscular Re-ed, Coordination Retraining,Manual Therapy Other Recommendations and Next Treatment gait and possibly stairs but Focus pt is able to sleep on first floor Recommendations To Nursing Amount of Assist Needed 1 Person Assist Discharge Recommendations PT Discharge Recommendations Home with Assistance
--- NOTE | 2019-02-19 09:25 | PM.DS.1 ---
History of Present Illness History of Present Illness Chief complaint: Translaminar Interbody Fusion/laminotomy Discharge Providers Provider Date of admission: 02/16/19 08:13 Discharge Date: 02/19/19 Primary care physician: Yaneth Wolff PA-C Consults: 02/16/19 15:46 Consult to Occupational Therapy Evaluate & Treat Comment: Physician Instructions: Evaluate and treat Consult to Physical Therapy Evaluate & Treat Comment: Physician Instructions: Evaluate and Treat Discharge provider: Azucena Mathias MD Summary Hospital Course Discharge Diagnosis: Low back pain Hospital Course: Patient was admitted to the floor postoperatively. On postop day 1 her pain was not controlled and her medications were switched from oxycodone to p.o. Dilaudid she also got a dose of Decadron. On postop day 2 her pain has been controlled much better. She mobilized with physical therapy well on postop day 1 and postop day. Additionally on postop day 2 her hip pain was markedly improved. Patient was tolerating a p.o. diet and Appropriate for discharge home. Status at Discharge Cognitive/behavioral status at discharge: oriented Functional status at discharge: independent ambulation Overall status at discharge: patient is progressing back to baseline Time Spent with Patient Time spent: Less than 30 minutes Exam Vital Signs (past 8 hours): - 02/19/19 05:24 02/19/19 08:00 Temperature 98.5 F 97.7 F Pulse Rate 90 91 H Respiratory Rate 16 16 Blood Pressure 127/77 126/72 Pulse Oximetry 97 97 Oxygen Delivery Method Room Air Oxygen Flow Rate 0 Narrative Exam Narrative: General: Alert oriented female in no acute distress HEENT: Normocephalic atraumatic CV exam: Regular rate and rhythm Abdomen exam: Soft nontender Spine: Dressing in place. Scant drainage on the dressing not outside of outlined area. This is changed to clean dressing today. Incision intact. Sutures in place no erythema no drainage no signs or symptoms of infection. Upper extremity: 5/5 strength dorsiflexion plantar flexion sensation grossly intact to light touch. Foot pumps on bilaterally Objective Labs Result Diagrams: 02/17/19 05:15 Discharge Plan Discharge Plan Patient Disposition: Home Discharge comment: f/u 1.5 wks Discharge orders & Medications Prescriptions: New docusate sodium [DOK] 100 mg Capsule 100 mg PO BID PRN (Reason: constipation) Qty: 30 RF: 0 hydroxyzine pamoate 25 mg Capsule 25 mg PO Q4HR PRN (Reason: spasms) Qty: 20 RF: 0 meloxicam [Mobic] 7.5 mg Tablet 15 mg PO 0800 PRN (Reason: pain) Qty: 30 RF: 0 dexamethasone 4 mg Tablet 4 mg PO Q8HR Qty: 3 RF: 0 hydromorphone 2 mg tablet 2 mg PO Q4H PRN (Reason: pain) Qty: 60 RF: 0 Continued atorvastatin 10 mg Tablet 10 mg PO BEDTIME RF: 0 acetaminophen [Tylenol Arthritis Pain] 650 mg Tablet Extended Release 1,300 mg PO Q8H PRN (Reason: Pain) RF: 0 bupropion HCl 300 mg Tablet Extended Release 24 Hr 300 mg PO QAM RF: 0 duloxetine 60 mg Capsule,Delayed Release(Dr/Ec) 90 mg PO QAM RF: 0 tizanidine 4 mg Capsule 4 mg PO TID PRN (Reason: Muscle Spasm) RF: 0 omeprazole 20 mg Tablet,Delayed Release (Dr/Ec) 20 mg PO Q OTHER DAY RF: 0 Discontinued oxycodone-acetaminophen 5-325 mg Tablet 1 tab PO Q6H PRN (Reason: Pain) RF: 0 diclofenac sodium 75 mg Tablet,Delayed Release (Dr/Ec) 75 mg PO BID RF: 0 Follow up/Referrals: Yaneth Wolff PA-C [Primary Care Provider] - Discharge Health Status Multidrug resistant organism: No MDRO Diet/Activity/Treatments Diet: Diet as Tolerated Activity: limited BLT 10 lbs Skin/Wound/Dressing Care Report to your healthcare provider any signs of infection, such as:: chills, fever, night sweats, increased pain, unusual drainage and unusual redness Dressing: may change dressing and shower POD#5 (02/21) Visit Report/Discharge Packet Instructions: DI for Prescription Opioid Use, DI for Transforaminal Lumbar Interbody Fusion Stand Alone Forms: Surgery Discharge Discharge Data Primary Care Provider: Yaneth Wolff VTE Deep Vein Thrombosis/Pulmonary Embolism Present on Admission: No
--- NOTE | 2019-02-19 10:35 | PC.NURSE ---
Addendum entered by Al Garcia R.N. 02/19/19 11:27: REVIEWED DISCHARGE INSTRUCTIONS AGAIN WHEN HER ARRIVED AT PATIENT'S REQUEST. they state understanding and have no further questions or concerns. Patient escorted out by wheelchair with all belongings to be discharged to home with . Original Note: Discharge instructions, prescriptions and home care reviewed with patient, she states understanding and has no further questions or concerns at this time. No IV in place. Dr. Mathias changed her dressing today, and it remains CDI. Patient instructed to call Dr. Galvan office on wednesday to ensure follow up appointment is scheduled for 1.5 weeks. Patient instructed to contact Dr. Byrd with questions or concerns, to report any possible signs of infection or to seek emergent care for emergency. Patient packed and waiting for corn picker by her family at this time.
--- NOTE | 2019-02-19 14:26 | CM.DPNOTE ---
DC Note: DC as expected today, home w/spouse. JW
== END 2019-02-19 11:29 | disposition home or self-care (01) | DRG 455 ==
PROVIDERS: Admitting Provider Orthopaedic Surgery; PCP Physician Assistant Medical; Visit Provider Orthopaedic Surgery
PROC: 0SG30AJ Fusion of Lumbosacral Joint with Interbody Fusion Device, Posterior Approach, Anterior Column, Open Approach (ICD-10-PCS; principal; 2019-02-16 10:15)
DX: M48.07 Spinal stenosis, lumbosacral region (principal); M51.16 Intervertebral disc disorders with radiculopathy, lumbar region; M48.061 Spinal stenosis, lumbar region without neurogenic claudication; K21.9 Gastro-esophageal reflux disease without esophagitis; M25.78 Osteophyte, vertebrae; G89.18 Other acute postprocedural pain
CPT/HCPCS: 36415; 72100; 76000; 85014; 85018; 97116; 97161; 97165; 97530; 97535; C1776; J0330; J0595; J0690; J1100; J1170; J2060; J2250; J2274; J2405; J2704; J3010; J3410

== ENCOUNTER → 2021-07-24 13:01 | Outpatient (CLI) | payer BC, SELFPAY ==
[2019-02-16 17:01] VITALS: BMI 31.7
--- NOTE | 2021-07-24 13:02 | DI.US.S_ITS ---
LIMITED ULTRASOUND OF RIGHT BREAST: 07/24/2021 CLINICAL: Patient returns for additional imaging over a suspected mass in the right breast. Comparison is made to exams dated: 07/24/2021 mammogram - [facility], 04/17/2021 mammogram, 04/16/2016 mammogram, and 08/28/2015 mammogram - [facility]. Color flow and real-time ultrasound of the right breast 12-3 o'clock, and retroareolar regions were performed. Fleming scale images of the real-time examination were reviewed. No ultrasound correlate for the focal asymmetry in the right breast at 12 o'clock middle depth. IMPRESSION: PROBABLY BENIGN No ultrasound correlate for the focal asymmetry in the right breast at 12 o'clock middle depth. A follow-up mammogram and possible ultrasound in 6 months is recommended to demonstrate stability. Exam findings were conveyed to the patient. This exam was interpreted at Station ID: [id number]. Electronically Signed By: Pancho Vega M.D. slc/:07/24/2021 14:16:21 letter sent: Followup Recommended Ultrasound BI-RADS: 3 Probably benign
--- NOTE | 2021-07-24 13:02 | DI.MG.S_ITS ---
UNILATERAL RIGHT DIGITAL DIAGNOSTIC MAMMOGRAM 3D/2D WITH ADDITIONAL VIEWS: 07/24/2021 CLINICAL: Additional evaluation requested from prior study. Comparison is made to exams dated: 04/17/2021 mammogram, 04/16/2016 mammogram, 08/28/2015 mammogram, and 01/09/2015 mammogram - [facility]. There are scattered fibroglandular elements in right breast. There is an asymmetry in the right breast middle depth central to the nipple seen on the craniocaudal view only. This is less prominent. No other significant masses or calcifications are seen in the breast. IMPRESSION: INCOMPLETE: NEEDS ADDITIONAL IMAGING EVALUATION The asymmetry in the right breast is indeterminate. A targeted ultrasound is recommended and will immediately follow. This exam was interpreted at Station ID: [id number]. NOTE: For mammograms, a report in lay terms will be sent to the patient. Approximately 15% of breast malignancies will not be visualized mammographically. In the management of a palpable breast mass, a negative mammogram must not discourage biopsy of a clinically suspicious lesion. Electronically Signed By: Pancho Vega M.D. slc/:07/24/2021 13:51:57 ACR BI-RADS Category 0: Incomplete [id number]
== END ==
PROVIDERS: PCP Physician Assistant Medical; Referring Provider Physician Assistant Medical; Visit Provider Physician Assistant Medical
DX: R92.8 Other abnormal and inconclusive findings on diagnostic imaging of breast (principal); N64.89 Other specified disorders of breast
CPT/HCPCS: 76642; 77065; G0279